=== PATIENT | male | born 1995 | race African-American/Black ===

== ENCOUNTER 2017-04-13 12:45 | Emergency (ER) | payer OTHER ==
[~2017-04-13] VITALS: Ht 167.6 cm; Wt 54.4 kg
[2017-04-13 12:58] VITALS: BP 135/65
[2017-04-13] MEDS ORDERED: ONDA8TAB12 PO ×2 (13:02→13:15)
--- NOTE | 2017-04-13 13:03 | PHYS DOC ---
Past History Past Medical History: No Pertinent History Past Surgical History: No Surgical History Smoking: Non-smoker Alcohol Use: Occasionally Drug Use: None Adult General Chief Complaint Chief Complaint: NAUSEA/VOMITING/DIARRHEA HPI HPI Patient is a pleasant 22-year-old male who was celebrating his birthday last night ingested a number of different alcoholic drinks and suffered from some nausea and vomited once last night. There is no blood nonbilious emesis. He had vomited at 4 AM this morning. He is suffering from no abdominal pain but because he works in [employer] they would not allow him to go back to her that anytime nausea and vomiting. He is here for nausea medications and any workup. He has no fever, no nausea, no diarrhea, no sick contacts, he has not consumed any raw food handle poultry or reptiles. There is no diarrhea no other symptoms to complain of. He feels well hydrated is eating and drinking without issue Review of Systems Review of Systems Constitutional: Denies fever or chills [] Eyes: Denies change in visual acuity, redness, or eye pain [] HENT: Denies nasal congestion or sore throat [] Respiratory: Denies cough or shortness of breath [] Cardiovascular: No additional information not addressed in HPI [] GI: Complains only nausea and vomiting. : Denies dysuria or hematuria [] Musculoskeletal: Denies back pain or joint pain [] Integument: Denies rash or skin lesions [] Neurologic: Denies headache, focal weakness or sensory changes [] Endocrine: Denies polyuria or polydipsia [] Physical Exam Physical Exam Constitutional: Well developed, well nourished, no acute distress, non-toxic appearance. [] HENT: Normocephalic, atraumatic, bilateral external ears normal, oropharynx moist, no oral exudates, nose normal. [] Eyes: PERRLA, EOMI, conjunctiva normal, Cardiovascular:Heart rate regular rhythm, no murmur [] Lungs & Thorax: Bilateral breath sounds clear to auscultation [] Abdomen: Bowel sounds normal, soft, no tenderness, no masses, no pulsatile masses. [] Skin: Warm, dry, no erythema, no rash. [] Neurologic: Alert and oriented X 3, normal motor function, Psychologic: Affect normal, judgement normal, mood normal. [] Current Patient Data Vital Signs Vital signs reported to me within normal limits according to nursing staff. Documented on their report. EKG EKG [] Radiology/Procedures Radiology/Procedures [] Course & Med Decision Making Course & Med Decision Making Pertinent Labs and Imaging studies reviewed. (See chart for details) with a normal abdomen today well-hydrated no acute distress here for work note and medications to treat his nausea likely from over beverage state. Patient is lucid not intoxicated at this time [] Dragon Disclaimer Dragon Disclaimer This chart was dictated in whole or in part using Voice Recognition software in a busy, high-work load, and often noisy Emergency Department environment. It may contain unintended and wholly unrecognized errors or omissions. Departure Departure: Impression: Primary Impression: Nausea and vomiting Disposition: HOME, SELF-CARE Condition: STABLE Patient Instructions: Nausea and Vomiting Additional Instructions: These follow-up with her primary care physician for any continued nausea and vomiting. Return for any abdominal pain especially located in the right lower quadrant or give any questions concerns. Scripts Ondansetron (ZOFRAN ODT) 8 Mg Tab.rapdis 4 MG PO TID for 3 Days Prov: LOGAN GRAF MD 04/13/17 LOGAN GRAF MD Apr 13, 2017 13:03
== END 2017-04-13 13:18 | disposition home or self-care (01) ==
LOC: ER 12:45
DX: R11.2 Nausea with vomiting, unspecified (principal)
CPT/HCPCS: 99283

== ENCOUNTER 2017-09-11 19:15 | Emergency (ER) | payer OTHER ==
[~2017-09-11] VITALS: Ht 167.6 cm; Wt 57.6 kg
[~2017-09-11 19:15] MED LIST: ONDA8TAB12 PO
[2017-09-11 19:51] VITALS: BP 114/45
[2017-09-11] MEDS ORDERED: FLUORESCEIN 1MG EYE STRIP. OS ONE (20:30)
[2017-09-11] MEDS ORDERED: TETRACAINE 0.5% OPHTH SOLUTION 4ML BOTTLE. OS ONE (20:30)
--- NOTE | 2017-09-11 21:01 | PHYS DOC ---
Past History Past Medical History: No Pertinent History Past Surgical History: No Surgical History Smoking: Non-smoker Alcohol Use: Occasionally Drug Use: None Adult General Chief Complaint Chief Complaint: EYE PROBLEMS HPI HPI Patient is a 22 year old male who presents with left eye problem. The patient states that last evening he had foreign body sensation in his left eye. Today that has improved but he complains of upper eyelid pain & swelling. He denies fevers/chills, skin changes, pain with eye movement, vision changes. Does not wear glasses or contacts. Review of Systems Review of Systems Constitutional: Denies fever or chills Eyes: Reports eyelid problem HENT: Denies nasal congestion or sore throat Respiratory: Denies cough Cardiovascular: Denies chest pain GI: Denies abdominal pain, nausea, vomiting Musculoskeletal: Denies back pain or joint pain Integument: Denies rash Neurologic: Denies headache All other systems were reviewed and found to be within normal limits, except as documented in this note. Current Medications Current Medications Current Medications Medications (Trade) Dose Ordered Sig/Tad Start Time Stop Time Status Last Admin Dose Admin Fluorescein Sodium (Ful-Liz 1mg) 1 strip 1X ONCE 09/11/17 20:30 09/11/17 20:34 DC 09/11/17 20:30 1 STRIP Tetracaine HCl (Tetracaine) 1 drop 1X ONCE 09/11/17 20:30 09/11/17 20:34 DC 09/11/17 20:30 1 DROP Allergies Allergies Allergies Coded Allergies Type Severity Reaction Last Updated Verified No Known Drug Allergies 09/11/17 No Physical Exam Physical Exam Constitutional: Well developed, well nourished, no acute distress, non-toxic appearance. HENT: Normocephalic, atraumatic, bilateral external ears normal, oropharynx moist, nose normal. Eyes: PERRLA, EOMI, conjunctiva normal, no discharge. very slight upper eyelid swelling medially without obvious visualized stye, no corneal abrasion identified with fluorescein stain. no periorbital erythema/warmth/swelling. Cardiovascular: no edema. Lungs & Thorax: no respiratory distress. Abdomen: nondistended. Skin: Warm, dry, no erythema, no rash. Extremities: No deformity Neurologic: Alert and oriented X 3 Current Patient Data Vital Signs Vital Signs Date Time Temp Pulse Resp B/P (MAP) Pulse Ox O2 Delivery O2 Flow Rate FiO2 09/11/17 19:51 97.5 76 20 99 Room Air EKG EKG [] Radiology/Procedures Radiology/Procedures [] Course & Med Decision Making Course & Med Decision Making Pertinent Labs and Imaging studies reviewed. (See chart for details) The patient presents with eyelid swelling. There was no corneal abrasion, conjunctivitis. Possible early stye. Recommend warm compresses. Follow up with eye clinic if not improving in 2-3 days. Come back for fever, vision changes/loss, symptoms of periorbital or orbital cellulitis, any otherwise worsening condition. Discharged home in stable condition. [] Dragon Disclaimer Dragon Disclaimer This electronic medical record was generated, in whole or in part, using a voice recognition dictation system. Departure Departure: Impression: Primary Impression: Eyelid pain Disposition: HOME, SELF-CARE Condition: STABLE Referrals: PCP,UNKNOWN (PCP) [facility] Patient Instructions: Eye - Foreign Body, [id number], Sty Additional Instructions: You were seen in the emergency department today for eyelid swelling. There is no scratch seen on the surface of your eye. This could be an early stye or just irritation on something that was in your eye yesterday. Please apply warm wash cloths to help with eyelid swelling and possible stye. Follow-up with an eye doctor if not improving in 2-3 days. Return to the emergency department for loss of vision, pain with eye movement, redness or warmth around your eye, any otherwise worsening condition. Problem Qualifiers Primary Impression: Eyelid pain Laterality: left Qualified Codes: H57.12 - Ocular pain, left eye JESSE GALVAN MD Sep 11, 2017 21:01
== END 2017-09-11 21:28 | disposition home or self-care (01) ==
LOC: ER 19:15
DX: H57.12 Ocular pain, left eye (principal); H57.8 Other specified disorders of eye and adnexa
CPT/HCPCS: 99283